=== PATIENT | male | born 1955 | race Caucasian/White ===

== ENCOUNTER 2024-02-09 06:48 | Day surgery (SDC) | payer BC ==
[2024-02-09] MEDS ORDERED: fentaNYL 50 mcg/mL 1 mL Vial ONE ×2 (07:52→08:16)
[2024-02-09] MEDS ORDERED: Midazolam HCl 5 mg/5 ml Vial ONE ×2 (07:53→08:25)
[2024-02-09] MEDS ORDERED: Lidocaine Viscous Sol 2% 15 ml UD Cup ONE (07:53)
[2024-02-09 08:13] VITALS: BP 128/73; TEMP 97.8
== END 2024-02-09 09:45 | disposition home or self-care (01) ==
LOC: CSHSDC 06:48
PROVIDERS: ATTEND Specialist
PROC: B24BZZ4 Ultrasonography of Heart with Aorta, Transesophageal (ICD-10-PCS; principal; 2024-02-09)
PROC: 5A2204Z Restoration of Cardiac Rhythm, Single (ICD-10-PCS; principal; 2024-02-09)
DX: I48.3 Typical atrial flutter (principal); I25.10 Atherosclerotic heart disease of native coronary artery without angina pectoris; I10 Essential (primary) hypertension; E11.9 Type 2 diabetes mellitus without complications; E78.2 Mixed hyperlipidemia; Z95.5 Presence of coronary angioplasty implant and graft; Z90.49 Acquired absence of other specified parts of digestive tract; Z90.89 Acquired absence of other organs; Z79.82 Long term (current) use of aspirin; Z79.01 Long term (current) use of anticoagulants; Z79.51 Long term (current) use of inhaled steroids; Z79.4 Long term (current) use of insulin; Z79.899 Other long term (current) drug therapy
CPT/HCPCS: 92960; 93005; 93010; 93312; 99152; 99153; J2250; J3010